=== PATIENT | male | born 1970 | race Caucasian/White ===

== ENCOUNTER 2025-11-02 11:14 | Outpatient (AMB) | payer OTHER, SELFPAY ==
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
[2025-11-02 11:26] VITALS: BP 180/90; PULSE 97; O2SAT 98; BMI 47.9
== END 2025-11-02 11:56 | disposition home or self-care (01) ==
LOC: HO.PMC 11:15
PROVIDERS: PCP Internal Medicine; Visit Provider Nurse Practitioner Family
DX: M54.2 Cervicalgia (principal); M54.9 Dorsalgia, unspecified; G89.29 Other chronic pain; M47.817 Spondylosis without myelopathy or radiculopathy, lumbosacral region; M47.812 Spondylosis without myelopathy or radiculopathy, cervical region; E11.40 Type 2 diabetes mellitus with diabetic neuropathy, unspecified
CPT/HCPCS: 99204

== ENCOUNTER 2025-11-02 11:14 | Outpatient (REF) | payer OTHER, SELFPAY ==
--- NOTE | ~2025-11-02 | XR_ITS ---
EXAMINATION: XR CERVICAL SPINE CLINICAL INFORMATION: M54.2 - Cervicalgia COMPARISON: None available. TECHNIQUE: AP, AP odontoid, and bilateral oblique views with lateral view cervical spine x-rays FINDINGS: There is straightening of the cervical lordosis. There is no prevertebral soft tissue swelling. There is minimal disc space narrowing with anterior osteophytes throughout cervical spine. There is subtle retrolisthesis at C5-6. No bony foraminal narrowing is identified. XR/XR cervical spine min 6V IMPRESSION: There is straightening of the expected cervical lordosis. This can be idiopathic, but can also be related to degenerative change, muscle spasm, or posterior soft tissue injury. Electronically signed by: Yo Baumann MD 11/02/2025 12:53 PM J[facility] NAYLOR
--- NOTE | ~2025-11-02 | XR_ITS ---
Exam:CR Xr Lumbar Spine 4v Min TECHNIQUE: AP, lateral, lateral spot, bilateral oblique views lumbar spine x-rays Prior: None INDICATION: Pain FINDINGS: There are 5 nonrib-bearing lumbar segments. There is mild levoscoliosis. T12-L1: There is mild disc space narrowing with bridging anterior osteophyte L1-L2: There is mild disc space narrowing and small anterior osteophyte L2-L3: Minimal disc space narrowing L3-L4: Moderate disc space narrowing with endplate osteophytes. L4-L5: Minimal disc space narrowing and facet sclerosis L5-S1: Small anterior osteophyte and subtle disc space narrowing. Oblique views demonstrate no pars in particulars defects. XR/XR lumbar spine 4V min IMPRESSION: Mild levoscoliosis and mild degenerative changes. Electronically signed by: Yo Baumann MD 11/02/2025 12:51 PM JADE
== END 2025-11-02 11:15 | disposition home or self-care (01) ==
LOC: HO.XRAY 11:14
PROVIDERS: PCP Internal Medicine; Visit Provider Nurse Practitioner Family
DX: M47.817 Spondylosis without myelopathy or radiculopathy, lumbosacral region (principal); M47.812 Spondylosis without myelopathy or radiculopathy, cervical region; E11.40 Type 2 diabetes mellitus with diabetic neuropathy, unspecified
CPT/HCPCS: 72052; 72110

== ENCOUNTER → 2025-11-02 12:16 | Outpatient (BNV) | payer OTHER, SELFPAY | PROVIDERS: PCP Internal Medicine; Visit Provider Radiology Diagnostic Radiology | DX: M54.2 Cervicalgia (principal); M51.360 Other intervertebral disc degeneration, lumbar region with discogenic back pain only; M41.86 Other forms of scoliosis, lumbar region | CPT/HCPCS: 72052; 72110 ==